=== PATIENT | male | born 1995 | race Caucasian/White ===

== ENCOUNTER 2020-09-19 06:53 | Outpatient (NON) | payer BC, SELFPAY ==
[2020-09-20 13:43] LABS: SARS-CoV-2 RNA PCR Negative
== END 2020-09-19 06:54 ==
PROVIDERS: PCP Family Medicine; Visit Provider Family Medicine
DX: Z20.828 Contact with and (suspected) exposure to other viral communicable diseases (principal)
CPT/HCPCS: 87635; C9803; U0003